=== PATIENT | female | born 1970 | race African-American/Black ===

== ENCOUNTER 2017-11-27 05:59 | Emergency (ER) | payer BC, MEDICAID ==
[~2017-11-27] VITALS: Ht 162.6 cm; Wt 77.7 kg
[~2017-11-27 05:59] MED LIST: ACET-8386 PO; ALPR0.5T2 PO
[2017-11-27 06:50] VITALS: BP 143/87
--- NOTE | 2017-11-27 07:46 | NUR ---
PATIENT PRESENTS TO ED WITH C/O N/V/D AND ABDOMINAL PAIN X YESTERDAY.DENIES BLOOD IN THE STOOL;SKIN IS PINK/WARM/DRY; AAOX4 WITH EVEN AND STEADY GAIT; PT DENIES ANY FEVER, CP, SOB, OR COUGH AT THIS TIME; PATIENT STATES PAIN OF 10/10 AT THIS TIME; PATIENT POSITIONED FOR COMFORT; HOB ELEVATED; BEDRAILS UP X2; BED DOWN. ER MD MADE AWARE OF PT STATUS.
[2017-11-27] MEDS: HYDROmorphone PFS 2 MG/ML SYR IM ONE (09:13)
[2017-11-27] MEDS: ONDANSETRON 4 MG ODT PO ONE (09:13)
[2017-11-27] MEDS: diphenhydrAMINE 50 MG/ML VIAL IM ONE (09:13)
--- NOTE | 2017-11-27 09:21 | NUR ---
PT HOOKED TO THE MONITOR;NO ACUTE DISTRESS NOTED;WILL CONTINUE TO MONITOR PT.
--- NOTE | 2017-11-27 10:36 | NUR ---
Patient discharged with v/s stable. Written and verbal after care instructions given and explained. Patient alert, oriented and verbalized understanding of instructions. Ambulatory with steady gait. All questions addressed prior to discharge. ID band removed. Patient advised to follow up with PMD. Rx of PROMETHAZINE AND TRAMADOL given. Patient educated on indication of medication including possible reaction and side effects. Opportunity to ask questions provided and answered.
[2017-11-27 10:37] VITALS: BP 116/83
== END 2017-11-27 10:36 | disposition home or self-care (01) ==
LOC: MED 05:59
DX: R11.2 Nausea with vomiting, unspecified (principal); R10.9 Unspecified abdominal pain; G89.29 Other chronic pain; M54.9 Dorsalgia, unspecified; Z88.1 Allergy status to other antibiotic agents; Z79.899 Other long term (current) drug therapy
CPT/HCPCS: 96372; 99284; J1170; J1200; S0119